=== PATIENT | female | born 1950 | race Caucasian/White ===

== ENCOUNTER 2019-07-08 22:46 | Emergency (ER) | payer OTHER ==
[~2019-07-08] VITALS: Ht 177.8 cm; Wt 68.0 kg
[~2019-07-08 22:46] MED LIST: ALBU90OI INH; HYDR1TAB94 PO; Percocet 5-3251 EACH PO; Zofran Odt4 MG SL
[2019-07-08] MEDS ORDERED: FLUT1DIS5 INH (23:04)
== END 2019-07-08 23:13 | disposition home or self-care (01) ==
LOC: ER 22:46
DX: R03.0 Elevated blood-pressure reading, without diagnosis of hypertension (principal); Z88.0 Allergy status to penicillin; Z79.899 Other long term (current) drug therapy; J45.909 Unspecified asthma, uncomplicated
CPT/HCPCS: 99283